=== PATIENT | female | born 1960 | race Caucasian/White ===

== ENCOUNTER → 2017-01-29 | Outpatient (CLI) | payer MEDICARE, MEDICAID ==
[~2017-01-29] MED LIST: BENTYL-DPS20 MG PO; BYSTOLIC5 MG PO; DEXILANT60 MG PO; ELAVIL-DPS100 MG PO; EPIPEN 2-P0.3 MG/0.3 IM; FLAGYL-DPS500 MG PO; LASIX DPS80 MG PO; NOVOLOG FL100 UNIT/1 SQ; PROVENTIL HFA6.7 GM IH; SPIRONOLACT50 MG PO; TOUJEO SOL300 UNIT/1 SQ; ULTRAM DPS50 MG PO; ZANAFLEX4 MG PO; ZANTAC DPS150 MG PO
== END | disposition home or self-care (01) ==
LOC: RAD.S 08:32
DX: Z12.31 Encounter for screening mammogram for malignant neoplasm of breast (principal)